=== PATIENT | male | born 1975 | race Hispanic/Latino ===

== ENCOUNTER 2018-08-27 20:32 | Inpatient (IN) | payer MEDICAID, OTHER ==
[2018-08-27 21:32] LABS: BASO # 0.03 K/mm3 (0.0-2.0); BASO % 0.2 % (0.0-3.0); EOS # 0.2 (0.0-0.7); EOS % 1.3 % (1.5-5.0); GRAN # 10.47 (1.4-6.5); GRAN % 71.1 % (50.0-68.0); HEMOGLOBIN 15.8 g/dL (14.0-18.0); LYMPH # 3.1 (1.2-3.4); LYMPH % 20.9 % (22.0-35.0); MEAN CELL VOLUME 86.7 fl (80.0-105.0); MEAN CORPUSCULAR HEMOGLOBIN 29.7 pg (25.0-35.0); MEAN CORPUSCULAR HGB CONC 34.3 g/dl (31.0-37.0); MONO % 6.5 % (1.0-6.0); RBC 5.32 10^6/uL (3.5-6.1); RED CELL DISTRIBUTION WIDTH 12.5 % (11.5-14.5); WHITE BLOOD COUNT 14.7 10^3/uL (4.5-11.0)
[2018-08-27 21:49] LABS: ALB/GLOB RATIO 1.3 (1.1-1.8); ALBUMIN 4.4 g/dL (3.0-4.8); ALT/SGPT 64 U/L (7-56); AST/SGOT 41 U/L (17-59); BLOOD UREA NITROGEN 19 mg/dL (7-21); CALCIUM 9.4 mg/dL (8.4-10.5); GFR NON-AFRICAN AMERICAN > 60
[2018-08-27 22:08] LABS: B-TYPE NATRIURETIC PEPTIDE 44.7 pg/mL (0-450); TROPONIN I < 0.01 ng/mL
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
[2018-08-27] MEDS ORDERED: Albuterol-Ipratrop 3 mg / 0.5 (3 ml) UD IH STA (22:24)
[2018-08-27] MEDS ORDERED: Sodium Chloride 0.9% 1,000 ML IV STA (22:25)
[2018-08-27] MEDS ORDERED: cefTRIAXone 1 gm 1 GM/100 ML BAG IVPB STA (22:33)
[2018-08-27] MEDS ORDERED: Azithromycin 500MG/NS 250ml 500 MG/250 ML BAG IVPB STA (22:34)
[2018-08-27 22:47] LABS: URINE BILIRUBIN NEGATIVE (NEGATIVE); URINE BLOOD NEGATIVE (NEGATIVE); URINE GLUCOSE (UA) NEGATIVE (NEGATIVE); URINE LEUKOCYTE ESTERASE NEGATIVE Leu/uL (NEGATIVE); URINE PROTEIN TRACE mg/dL (<30 mg/dL); URINE UROBILINOGEN 0.2 E.U./dL (<1 E.U./dL)
[2018-08-27 22:50] LABS: URINE APPEARANCE CLEAR (CLEAR); URINE COLOR YELLOW (YELLOW)
[2018-08-27 22:56] LABS: URINE RBC 0 - 2 /hpf (0-2); URINE WBC NEGATIVE /hpf (0-6)
[2018-08-27] MEDS ORDERED: Albuterol-Ipratrop 3 mg / 0.5 (3 ml) UD IH PRN (23:12)
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
[2018-08-27] MEDS: Sodium Chloride 0.9% 1,000 ML IV SCH (23:34)
[2018-08-28 01:05] VITALS: BMI 40.8
[2018-08-28 03:00] LABS: BARBITURATES, UR NEGATIVE (NEGATIVE); BENZODIAZEPINES, UR NEGATIVE (NEGATIVE); OPIATES, UR NEGATIVE (NEGATIVE); PHENCYCLIDINE, UR NEGATIVE (NEGATIVE)
[2018-08-28 04:42] LABS: HDL CHOLESTEROL 29 mg/dL (29-60)
[2018-08-28 04:52] LABS: LDL CHOLESTEROL 204 mg/dL (0-129)
[2018-08-28 04:54] LABS: TROPONIN I < 0.01 ng/mL
[2018-08-28 05:00] LABS: FREE T4 1.04 ng/dL (0.78-2.19)
[2018-08-28] MEDS: Sodium Chloride 0.9% 1,000 ML IV SCH ×3 (05:39→20:35)
[2018-08-28 07:35] LABS: BASO # 0.02 K/mm3 (0.0-2.0); BASO % 0.2 % (0.0-3.0); EOS % 0.3 % (1.5-5.0); GRAN # 9.86 (1.4-6.5); GRAN % 87.6 % (50.0-68.0); HEMOGLOBIN 14.6 g/dL (14.0-18.0); LYMPH # 1.2 (1.2-3.4); LYMPH % 10.7 % (22.0-35.0); MEAN CELL VOLUME 87.2 fl (80.0-105.0); MEAN CORPUSCULAR HEMOGLOBIN 29.7 pg (25.0-35.0); MEAN CORPUSCULAR HGB CONC 34.1 g/dl (31.0-37.0); MEAN PLATELET VOLUME 11.3 fl (7.0-11.0); MONO # 0.1 (0.1-0.6); MONO % 1.2 % (1.0-6.0); RBC 4.91 10^6/uL (3.5-6.1); RED CELL DISTRIBUTION WIDTH 12.4 % (11.5-14.5); WHITE BLOOD COUNT 11.2 10^3/uL (4.5-11.0)
[2018-08-28 08:04] LABS: ALB/GLOB RATIO 1.3 (1.1-1.8); ALBUMIN 4.2 g/dL (3.0-4.8); ALT/SGPT 56 U/L (7-56); AST/SGOT 35 U/L (17-59); BLOOD UREA NITROGEN 19 mg/dL (7-21); CALCIUM 9.4 mg/dL (8.4-10.5); GFR NON-AFRICAN AMERICAN > 60
[2018-08-28] MEDS: Insulin Lispro (humaLOG) LOW Coverage SC SCH ×3 (08:16→22:00)
--- NOTE | 2018-08-28 09:25 | RAD ---
Date of service: 08/27/2018 HISTORY: Chest pain COMPARISON: No prior. FINDINGS: LUNGS: No active pulmonary disease. PLEURA: No significant pleural effusion identified, no pneumothorax apparent. CARDIOVASCULAR: No aortic atherosclerotic calcification present. Normal cardiac size. No pulmonary vascular congestion. OSSEOUS STRUCTURES: No significant abnormalities. VISUALIZED UPPER ABDOMEN: Normal. OTHER FINDINGS: None. IMPRESSION: No active disease.
[2018-08-28] MEDS ORDERED: Azithromycin 250 MG in Sodium Chloride 0.9% 250 ML IVPB SCH (10:00)
[2018-08-28] MEDS ORDERED: cefTRIAXone 1 gm 1 GM/100 ML BAG IVPB SCH (10:00)
--- NOTE | 2018-08-28 10:34 | CARD ---
APPROVED REPORT Date of service: 08/27/2018 EKG Measurement Heart [id number] <Conclusion> Normal sinus rhythm Possible Left atrial enlargement Rightward axis ST_T Changes.
--- NOTE | 2018-08-28 10:35 | RAD ---
Date of service: 08/28/2018 HISTORY: r/o pneumonia COMPARISON: 08/27/2018 TECHNIQUE: Chest PA and lateral FINDINGS: LUNGS: No active pulmonary disease. PLEURA: No significant pleural effusion identified. No pneumothorax apparent. CARDIOVASCULAR: No aortic atherosclerotic calcification present. Normal cardiac size. No pulmonary vascular congestion. OSSEOUS STRUCTURES: No significant abnormalities. VISUALIZED UPPER ABDOMEN: Normal. OTHER FINDINGS: None. IMPRESSION: No active disease.
--- NOTE | 2018-08-28 15:42 | CARD ---
APPROVED REPORT Date of service: 08/28/2018 EXAM: Two-dimensional and M-mode echocardiogram with Doppler and color Doppler. INDICATION ANGINA/CARDIOMEGALY 2D DIMENSIONS Left Atrium (2D)4.2 (1.6-4.0cm)IVSd1.2 (0.7-1.1cm) LVDd5.7 (3.9-5.9cm)PWd1.4 (0.7-1.1cm) LVDs4.1 (2.5-4.0cm)FS (%) 28.5 % LVEF (%)54.2 (>50%) M-Mode DIMENSIONS Aortic Root2.70 (2.2-3.7cm)Aortic Cusp Exc.2.30 (1.5-2.0cm) Aortic Valve AoV Peak Yhvuqspn547.0cm/Kelsey Peak GR.5mmHg Mitral Valve MV E Mjttqtqk16.6cm/sMV A [place]91.4cm/sE/A ratio0.8 TDI E/Lateral E'0.0E/Medial E'0.0 Tricuspid Valve TR Peak [id number] [id number] Peak Gr.6mmHg [id number] LEFT VENTRICLE The left ventricle is normal size. There is borderline concentric left ventricular hypertrophy. The left ventricular function is normal. The left ventricular ejection fraction is within the normal range. There is normal LV segmental wall motion. Transmitral Doppler flow pattern is Grade I-abnormal relaxation pattern. RIGHT VENTRICLE The right ventricle is borderline dilated. There is normal right ventricular wall thickness. The right ventricular systolic function is normal. ATRIA The left atrium is borderline dilated. The right atrium size is normal. AORTIC VALVE The aortic valve is not well visualized. No aortic regurgitation is present. There is no aortic valvular stenosis. MITRAL VALVE The mitral valve is not well visualized. There is no mitral valve regurgitation noted. There is no mitral valve stenosis. TRICUSPID VALVE The tricuspid valve is normal in structure. There is no tricuspid valve regurgitation noted. GREAT VESSELS The aortic root is normal in size. The IVC is normal in size and collapses >50% with inspiration. PERICARDIAL EFFUSION There is no pericardial effusion. <Conclusion> There is borderline concentric left ventricular hypertrophy. The left ventricular function is normal. The left ventricular ejection fraction is within the normal range. There is normal LV segmental wall motion. Transmitral Doppler flow pattern is Grade I-abnormal relaxation pattern.
--- NOTE | 2018-08-28 15:44 | CP.PCM.PN ---
<Prem Yuen - Last Filed: 08/28/18 17:16> Subjective - Date & Time of Evaluation Date of Evaluation: 08/28/18 Time of Evaluation: 07:45 - Subjective Subjective: Medicine Progress Note for Hospitalist Service, Dr. Tomi Yuen, DO PGY-1 Pt seen and examined at bedside this am. States chest pain is improving, states he had difficulty sleeping last night 2/2 chest pain. Denies sob, fever, chills, n/v/d/c, abd pain, urinary complaints, or other symptoms. No acute events reported overnight by staff. Objective - Vital Signs/Intake and Output Vital Signs (last 24 hours): Temp Pulse Resp BP Pulse Ox 97.6 F 70 17 133/85 97 08/28/18 12:00 08/28/18 12:00 08/28/18 12:00 08/28/18 12:00 08/28/18 12:00 Intake and Output: 08/28/18 08/28/18 06:59 18:59 Intake Total 940 Balance 940 - Medications Medications: Current Medications Acetaminophen (Tylenol 325mg Tab) 650 mg PO Q6H PRN PRN Reason: Headache Last Admin: 08/28/18 06:34 Dose: 650 mg Albuterol/Ipratropium (Duoneb 3 Mg/0.5 Mg (3 Ml) Ud) 3 ml IH Q6H PRN PRN Reason: Wheezing Aspirin (Aspirin Chewable) 81 mg PO DAILY [facility] Last Admin: 08/28/18 09:44 Dose: 81 mg Atorvastatin Calcium (Lipitor) 40 mg PO HS [facility] Heparin Sodium (Porcine) (Heparin) 5,000 units SC Q12 [facility]; Protocol Last Admin: 08/28/18 09:44 Dose: 5,000 units Sodium Chloride (Sodium Chloride 0.9%) 1,000 mls @ 100 mls/hr IV .Q10H [facility] Last Admin: 08/28/18 09:45 Dose: Not Given Ibuprofen (Motrin Tab) 400 mg PO Q6H PRN PRN Reason: Headache Last Admin: 08/28/18 09:44 Dose: 400 mg Insulin Human Lispro (Humalog Low) 0 units SC ACHS [facility]; Protocol Last Admin: 08/28/18 08:16 Dose: Not Given - Labs Labs: 08/28/18 07:00 08/28/18 07:00 - Constitutional Appears: Non-toxic, No Acute Distress - Head Exam Head Exam: ATRAUMATIC, NORMOCEPHALIC - Eye Exam Eye Exam: EOMI, Normal appearance, PERRL - ENT Exam ENT Exam: Mucous Membranes Moist - Respiratory Exam Respiratory Exam: Clear to Ausculation Bilateral, NORMAL BREATHING PATTERN. absent: Rales, Rhonchi, Wheezes - Cardiovascular Exam Cardiovascular Exam: REGULAR RHYTHM, +S1, +S2. absent: Gallop, Rubs, Murmur - GI/Abdominal Exam GI & Abdominal Exam: Soft, Normal Bowel Sounds. absent: Distended, Guarding, Tenderness, Organomegaly - Extremities Exam Extremities Exam: Full ROM, Normal Capillary Refill, Normal Inspection. absent: Tenderness - Neurological Exam Neurological Exam: Alert, Awake, CN II-XII Intact, Oriented x3 - Skin Skin Exam: Dry, Intact, Normal Color, Warm Assessment and Plan - Assessment and Plan (Free Text) Assessment: 42M w/ no significant PMH presented to [facility] on 08/27 w/ c/o new onset L sided CP hours prior to admission. Admitted for ACS r/o. Plan: Chest Pain - ACS r/o EKG showed no significant ST segment elevations; Questionable T wave inversions appreciated CXR on admission: no active disease WBC trending down Trops neg x3 TSH 0.76, free T4 1.04 TGs 233, Chol 293, LDL 204, HDL 29 A1c 6.1 C/w Lipitor 40 mg PO hs Duonebs Q6H PRN ASA daily Echo demonstrated EF 54%, otherwise wnl Cardiology consulted (Dr. Justin), appreciate recs PPX: Heparin 5000 Q12 GI not indicated Pt seen, examined with, and plan discussed with Dr. Krishna, attending physician. Prem Yuen DO PGY-1, Bulb Grader Pager #[phone] <Wilber Krishna - Last Filed: 08/29/18 15:37> Objective - Vital Signs/Intake and Output Vital Signs (last 24 hours): Temp Pulse Resp BP Pulse Ox 97.6 F 58 L 20 143/97 H 97 08/29/18 11:55 08/29/18 14:00 08/29/18 11:55 08/29/18 11:55 08/29/18 06:00 Intake and Output: 08/29/18 08/29/18 06:59 18:59 Intake Total 300 Output Total 450 Balance -150 - Medications Medications: Current Medications Acetaminophen (Tylenol 325mg Tab) 650 mg PO Q6H PRN PRN Reason: Headache Last Admin: 08/29/18 09:56 Dose: 650 mg Albuterol/Ipratropium (Duoneb 3 Mg/0.5 Mg (3 Ml) Ud) 3 ml IH Q6H PRN PRN Reason: Wheezing Aspirin (Aspirin Chewable) 81 mg PO DAILY [facility] Last Admin: 08/29/18 09:56 Dose: 81 mg Atorvastatin Calcium (Lipitor) 40 mg PO HS [facility] Last Admin: 08/28/18 23:12 Dose: 40 mg Heparin Sodium (Porcine) (Heparin) 5,000 units SC Q12 [facility]; Protocol Last Admin: 08/29/18 09:56 Dose: 5,000 units Sodium Chloride (Sodium Chloride 0.9%) 1,000 mls @ 100 mls/hr IV .Q10H [facility] Last Admin: 08/29/18 05:24 Dose: 100 mls/hr Ibuprofen (Motrin Tab) 400 mg PO Q6H PRN PRN Reason: Headache Last Admin: 08/29/18 05:21 Dose: 400 mg Insulin Human Lispro (Humalog Low) 0 units SC ACHS [facility]; Protocol Last Admin: 08/29/18 12:39 Dose: Not Given Metoprolol Tartrate (Lopressor) 12.5 mg PO BRKDIN [facility] Nicotine (Nicoderm Cq) 1 patch TD DAILY [facility] - Labs Labs: 08/29/18 06:00 08/29/18 06:00 Attending/Attestation - Attestation I have personally seen and examined this patient.: Yes I have fully participated in the care of the patient.: Yes I have reviewed all pertinent clinical information, including history, physical exam and plan: Yes Notes (Text): 42 y/o obese M here with CP r/o ACS. EKG showed TWI in V1-V6 but trop negative x3. Pt has significant risk factors for CAD including smoking, hyperlipidemia, central obesity. will f/u cardio recommendations. c/w ASA, statin A1c of 6.1, c/w RISS pt counseled on diet and exercise
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
[2018-08-29] MEDS: Sodium Chloride 0.9% 1,000 ML IV SCH ×2 (05:24→16:59)
[2018-08-29 06:54] LABS: HEMOGLOBIN 13.6 g/dL (14.0-18.0); MEAN CELL VOLUME 86.9 fl (80.0-105.0); MEAN CORPUSCULAR HEMOGLOBIN 29.2 pg (25.0-35.0); MEAN CORPUSCULAR HGB CONC 33.7 g/dl (31.0-37.0); RBC 4.65 10^6/uL (3.5-6.1); RED CELL DISTRIBUTION WIDTH 12.4 % (11.5-14.5); WHITE BLOOD COUNT 11.1 10^3/uL (4.5-11.0)
[2018-08-29 07:23] LABS: ALB/GLOB RATIO 1.2 (1.1-1.8); ALBUMIN 3.7 g/dL (3.0-4.8); ALT/SGPT 46 U/L (7-56); AST/SGOT 25 U/L (17-59); BLOOD UREA NITROGEN 15 mg/dL (7-21); CALCIUM 8.7 mg/dL (8.4-10.5); GFR NON-AFRICAN AMERICAN > 60
[2018-08-29] MEDS: Insulin Lispro (humaLOG) LOW Coverage SC SCH ×4 (08:09→21:31)
--- NOTE | 2018-08-29 13:30 | CP.PCM.PN ---
<Prem Yuen - Last Filed: 08/29/18 14:56> Subjective - Date & Time of Evaluation Date of Evaluation: 08/29/18 Time of Evaluation: 07:20 - Subjective Subjective: Medicine Progress Note for Hospitalist Service, Dr. Tomi Yuen, DO PGY-1 Pt seen and examined at bedside. States chest pain is improving in severity. Otherwise denies any acute complaints currently. Denies headache, dizziness, fever, chills, shortness of breath, n/v/d/c, abd pain, urinary complaints, or other symptoms. No acute events reported overnight by staff. Objective - Vital Signs/Intake and Output Vital Signs (last 24 hours): Temp Pulse Resp BP Pulse Ox 97.6 F 61 20 143/97 H 97 08/29/18 11:55 08/29/18 11:55 08/29/18 11:55 08/29/18 11:55 08/29/18 06:00 Intake and Output: 08/29/18 08/29/18 06:59 18:59 Intake Total 300 Output Total 450 Balance -150 - Medications Medications: Current Medications Acetaminophen (Tylenol 325mg Tab) 650 mg PO Q6H PRN PRN Reason: Headache Last Admin: 08/29/18 09:56 Dose: 650 mg Albuterol/Ipratropium (Duoneb 3 Mg/0.5 Mg (3 Ml) Ud) 3 ml IH Q6H PRN PRN Reason: Wheezing Aspirin (Aspirin Chewable) 81 mg PO DAILY [facility] Last Admin: 08/29/18 09:56 Dose: 81 mg Atorvastatin Calcium (Lipitor) 40 mg PO HS [facility] Last Admin: 08/28/18 23:12 Dose: 40 mg Heparin Sodium (Porcine) (Heparin) 5,000 units SC Q12 [facility]; Protocol Last Admin: 08/29/18 09:56 Dose: 5,000 units Sodium Chloride (Sodium Chloride 0.9%) 1,000 mls @ 100 mls/hr IV .Q10H [facility] Last Admin: 08/29/18 05:24 Dose: 100 mls/hr Ibuprofen (Motrin Tab) 400 mg PO Q6H PRN PRN Reason: Headache Last Admin: 08/29/18 05:21 Dose: 400 mg Insulin Human Lispro (Humalog Low) 0 units SC ACHS [facility]; Protocol Last Admin: 08/29/18 12:39 Dose: Not Given Metoprolol Tartrate (Lopressor) 12.5 mg PO BRKDIN [facility] - Labs Labs: 08/29/18 06:00 08/29/18 06:00 - Constitutional Appears: Non-toxic, No Acute Distress - Head Exam Head Exam: ATRAUMATIC, NORMOCEPHALIC - Eye Exam Eye Exam: EOMI, Normal appearance, PERRL - ENT Exam ENT Exam: Mucous Membranes Moist - Respiratory Exam Respiratory Exam: Clear to Ausculation Bilateral, NORMAL BREATHING PATTERN. absent: Rales, Rhonchi, Wheezes - Cardiovascular Exam Cardiovascular Exam: REGULAR RHYTHM, +S1, +S2. absent: Gallop, Rubs, Murmur - GI/Abdominal Exam GI & Abdominal Exam: Soft, Normal Bowel Sounds. absent: Distended, Guarding, Tenderness, Organomegaly - Extremities Exam Extremities Exam: Full ROM, Normal Capillary Refill, Normal Inspection. absent: Calf Tenderness, Pedal Edema - Neurological Exam Neurological Exam: Alert, Awake, CN II-XII Intact, Normal Gait, Oriented x3 - Skin Skin Exam: Dry, Intact, Normal Color, Warm Assessment and Plan - Assessment and Plan (Free Text) Assessment: 42M w/ no significant PMH presented to [facility] on 08/27 w/ c/o new onset L sided CP hours prior to admission. Admitted for ACS r/o. Plan: Chest Pain - ACS r/o EKG on admission showed no significant ST segment elevations; Questionable T wave inversions appreciated Repeat EKG this am NSR, no acute St-t wave changes appreciated CXR on admission: no active disease WBC trending down Trops neg x3 TSH 0.76, free T4 1.04 A1c 6.1 Duonebs Q6H PRN ASA daily Echo demonstrated EF 54%, otherwise wnl Cardiology consulted (Dr. Justin), appreciate recs To be NPO after midnight tomorrow for cardiac cath as per Dr. Justin HLD TGs 233, Chol 293, LDL 204, HDL 29 C/w Lipitor 40 mg PO hs Hx tobacco abuse Nicotine patch offered Smoking cessation counseling provided PPX: Heparin 5000 Q12 GI not indicated Pt seen, examined with, and plan discussed with Dr. Krishna, attending physician. Prem Yuen DO PGY-1, Cardiology Tech Pager #[phone] <Wilber Krishna - Last Filed: 08/29/18 15:39> Objective - Vital Signs/Intake and Output Vital Signs (last 24 hours): Temp Pulse Resp BP Pulse Ox 97.6 F 58 L 20 143/97 H 97 08/29/18 11:55 08/29/18 14:00 08/29/18 11:55 08/29/18 11:55 08/29/18 06:00 Intake and Output: 08/29/18 08/29/18 06:59 18:59 Intake Total 300 Output Total 450 Balance -150 - Medications Medications: Current Medications Acetaminophen (Tylenol 325mg Tab) 650 mg PO Q6H PRN PRN Reason: Headache Last Admin: 08/29/18 09:56 Dose: 650 mg Albuterol/Ipratropium (Duoneb 3 Mg/0.5 Mg (3 Ml) Ud) 3 ml IH Q6H PRN PRN Reason: Wheezing Aspirin (Aspirin Chewable) 81 mg PO DAILY [facility] Last Admin: 08/29/18 09:56 Dose: 81 mg Atorvastatin Calcium (Lipitor) 40 mg PO HS [facility] Last Admin: 08/28/18 23:12 Dose: 40 mg Heparin Sodium (Porcine) (Heparin) 5,000 units SC Q12 [facility]; Protocol Last Admin: 08/29/18 09:56 Dose: 5,000 units Sodium Chloride (Sodium Chloride 0.9%) 1,000 mls @ 100 mls/hr IV .Q10H [facility] Last Admin: 08/29/18 05:24 Dose: 100 mls/hr Ibuprofen (Motrin Tab) 400 mg PO Q6H PRN PRN Reason: Headache Last Admin: 08/29/18 05:21 Dose: 400 mg Insulin Human Lispro (Humalog Low) 0 units SC ACHS [facility]; Protocol Last Admin: 08/29/18 12:39 Dose: Not Given Metoprolol Tartrate (Lopressor) 12.5 mg PO BRKDIN [facility] Nicotine (Nicoderm Cq) 1 patch TD DAILY [facility] - Labs Labs: 08/29/18 06:00 08/29/18 06:00 Attending/Attestation - Attestation I have personally seen and examined this patient.: Yes I have fully participated in the care of the patient.: Yes I have reviewed all pertinent clinical information, including history, physical exam and plan: Yes Notes (Text): 08/29/18 15:38 42 y/o obese M here with CP r/o ACS. EKG showed TWI in V1-V6 but trop negative x3. Pt has significant risk factors for CAD including smoking, hyperlipidemia, central obesity. pt to go for cath tomorrow c/w ASA, statin A1c of 6.1, c/w RISS pt counseled on diet and exercise
--- NOTE | 2018-08-29 13:45 | PN ---
DATE: 08/29/2018 SUBJECTIVE: The patient denies any chest pain. PHYSICAL EXAMINATION: VITAL SIGNS: Blood pressure 128/83, heart rate 69, temperature 97.5, and respirations 20. HEENT: Normocephalic. CHEST: Clear. HEART: S1 and S2 regular. EXTREMITIES: No edema. LABORATORY DATA: Hemoglobin and hematocrit 13.6 and 40.4, white count 11.1, and platelet count 241,000. SMA-7 is within normal limits except for chloride of 109. EKG today revealed sinus rhythm anterior ischemic T-wave inversion. Echocardiographic study revealed borderline concentric LVH with normal ejection fraction and normal segmental wall motion, grade I abnormal relaxation pattern. ASSESSMENT: 1. Chest pain, myocardial infarction, ruled out. 2. Ischemic anterior T-wave changes. 3. Hyperlipidemia. RECOMMENDATIONS: Continue current aspirin, subcutaneous heparin, Lipitor. Start Lopressor at 12.5 mg twice a day. Cardiac catheterization was recommended. The procedure and risks were explained to the patient, who understood and agreed for the procedure. Procedure schedule for 10 a.m. tomorrow. Daquan Justin MD
--- NOTE | 2018-08-29 20:43 | CARD ---
APPROVED REPORT Date of service: 08/29/2018 EKG Measurement Heart [id number] <Conclusion> Normal sinus rhythm Nonspecific T wave abnormality Abnormal ECG
[2018-08-30] MEDS: Sodium Chloride 0.9% 1,000 ML IV SCH ×4 (01:30→22:00)
[2018-08-30 06:28] LABS: HEMOGLOBIN 13.1 g/dL (14.0-18.0); MEAN CELL VOLUME 86.3 fl (80.0-105.0); MEAN CORPUSCULAR HGB CONC 33.6 g/dl (31.0-37.0); MEAN PLATELET VOLUME 10.8 fl (7.0-11.0); RBC 4.52 10^6/uL (3.5-6.1); RED CELL DISTRIBUTION WIDTH 12.4 % (11.5-14.5); WHITE BLOOD COUNT 7.7 10^3/uL (4.5-11.0)
[2018-08-30 06:59] LABS: ALB/GLOB RATIO 1.3 (1.1-1.8); ALBUMIN 3.6 g/dL (3.0-4.8); ALT/SGPT 47 U/L (7-56); AST/SGOT 28 U/L (17-59); BLOOD UREA NITROGEN 18 mg/dL (7-21); CALCIUM 8.6 mg/dL (8.4-10.5); GFR NON-AFRICAN AMERICAN > 60
[2018-08-30] MEDS: Insulin Lispro (humaLOG) LOW Coverage SC SCH ×4 (07:41→21:40)
[2018-08-30] MEDS ORDERED: Lidocaine 2% Inj (20ml) ONE (09:06)
[2018-08-30] MEDS ORDERED: Iodixanol 320 MG/ML 100 ML BOTTLE IV ONE (09:06)
[2018-08-30] MEDS ORDERED: Iohexol 350mgl/ml 50 ML ONE (09:06)
[2018-08-30] MEDS ORDERED: Iodixanol 320 MG/ML 200 ML BOTTLE IV ONE (09:06)
--- NOTE | 2018-08-30 09:11 | CP.PCM.PN ---
<Prem Yuen - Last Filed: 08/30/18 16:16> Subjective - Date & Time of Evaluation Date of Evaluation: 08/30/18 Time of Evaluation: 07:45 - Subjective Subjective: Medicine Progress Note for Hospitalist Service, Dr. Tomi Yuen, DO PGY-1 Pt seen and examined at bedside. Denies any acute complaints, resting comfortably at bedside. States chest pain has resolved. No acute events reported overnight by staff. Denies HERNANDEZ, dizziness, sob, n/v/d/c, abd pain, urinary complaints, or other symptoms. Pt NPO for cardiac cath today. Objective - Vital Signs/Intake and Output Vital Signs (last 24 hours): Temp Pulse Resp BP Pulse Ox 98.1 F 63 20 117/66 99 08/30/18 06:00 08/30/18 08:40 08/30/18 06:00 08/30/18 06:00 08/30/18 06:00 Intake and Output: 08/30/18 08/30/18 06:59 18:59 Intake Total 1440 Output Total 350 Balance 1090 - Medications Medications: Current Medications Acetaminophen (Tylenol 325mg Tab) 650 mg PO Q6H PRN PRN Reason: Headache Last Admin: 08/29/18 09:56 Dose: 650 mg Albuterol/Ipratropium (Duoneb 3 Mg/0.5 Mg (3 Ml) Ud) 3 ml IH Q6H PRN PRN Reason: Wheezing Aspirin (Aspirin Chewable) 81 mg PO DAILY [facility] Last Admin: 08/29/18 09:56 Dose: 81 mg Atorvastatin Calcium (Lipitor) 40 mg PO HS [facility] Last Admin: 08/29/18 22:09 Dose: 40 mg Heparin Sodium (Porcine) (Heparin) 5,000 units SC Q12 [facility]; Protocol Last Admin: 08/29/18 22:08 Dose: 5,000 units Sodium Chloride (Sodium Chloride 0.9%) 1,000 mls @ 100 mls/hr IV .Q10H [facility] Last Admin: 08/30/18 03:00 Dose: 100 mls/hr Ibuprofen (Motrin Tab) 400 mg PO Q6H PRN PRN Reason: Headache Last Admin: 08/29/18 22:08 Dose: 400 mg Insulin Human Lispro (Humalog Low) 0 units SC ACHS [facility]; Protocol Last Admin: 08/30/18 07:41 Dose: Not Given Metoprolol Tartrate (Lopressor) 12.5 mg PO BRKDIN [facility] Last Admin: 08/30/18 08:40 Dose: Not Given Nicotine (Nicoderm Cq) 1 patch TD DAILY [facility] Last Admin: 08/29/18 16:55 Dose: Not Given - Labs Labs: 08/30/18 06:00 08/30/18 06:00 - Constitutional Appears: Non-toxic, No Acute Distress - Head Exam Head Exam: ATRAUMATIC, NORMOCEPHALIC - Eye Exam Eye Exam: EOMI, Normal appearance, PERRL - ENT Exam ENT Exam: Mucous Membranes Moist - Respiratory Exam Respiratory Exam: Clear to Ausculation Bilateral, NORMAL BREATHING PATTERN. absent: Rales, Rhonchi, Wheezes - Cardiovascular Exam Cardiovascular Exam: REGULAR RHYTHM, +S1, +S2. absent: Gallop, Rubs, Murmur - GI/Abdominal Exam GI & Abdominal Exam: Soft, Normal Bowel Sounds. absent: Distended, Guarding, Tenderness, Organomegaly - Extremities Exam Extremities Exam: Full ROM, Normal Capillary Refill, Normal Inspection. absent: Calf Tenderness, Pedal Edema - Neurological Exam Neurological Exam: Alert, Awake, CN II-XII Intact, Oriented x3 - Psychiatric Exam Psychiatric exam: Normal Affect, Normal Mood - Skin Skin Exam: Dry, Intact, Normal Color, Warm Assessment and Plan - Assessment and Plan (Free Text) Assessment: 42M w/ no significant PMH presented to [facility] on 08/27 w/ c/o new onset L sided CP hours prior to admission. Admitted for ACS r/o. Plan: Chest Pain - ACS r/o EKG on admission showed no significant ST segment elevations; Questionable T wave inversions appreciated Repeat EKG on 08/29 NSR, no acute St-t wave changes appreciated CXR on admission: no active disease Trops neg x3 TSH 0.76, free T4 1.04 A1c 6.1 Duonebs Q6H PRN ASA daily Echo demonstrated EF 54%, otherwise wnl Cardiology consulted (Dr. Justin), appreciate recs Cardiac cath 08/30: Unremarkable coronary circulation. 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 CT angio of chest ordered for further eval of aneurysmal dilatation as per Dr. Justin HLD TGs 233, Chol 293, LDL 204, HDL 29 C/w Lipitor 40 mg PO hs Hx tobacco abuse Nicotine patch offered Smoking cessation counseling provided PPX: Heparin 5000 Q12 GI not indicated Pt seen, examined with, and plan discussed with Dr. Krishna, attending physician. Prem Yuen DO PGY-1, Card Mounter Pager #[phone] <Wilber Krishna - Last Filed: 09/02/18 00:30> Objective - Vital Signs/Intake and Output Vital Signs (last 24 hours): Temp Pulse Resp BP Pulse Ox 98.2 F 61 20 129/88 99 08/31/18 12:00 08/31/18 12:00 08/31/18 12:00 08/31/18 12:00 08/31/18 05:33 - Labs Labs: 08/31/18 06:00 08/31/18 06:00 PT 11.0 SECONDS (9.4-12.5) 08/30/18 08:47 INR 0.96 08/30/18 08:47 APTT 28.7 Seconds (25.1-36.5) 08/30/18 08:47 Attending/Attestation - Attestation I have personally seen and examined this patient.: Yes I have fully participated in the care of the patient.: Yes I have reviewed all pertinent clinical information, including history, physical exam and plan: Yes Notes (Text): Chest pain r/o ACS: Pt is s/p cath with no significant stenosis. however noted some aortic root dilation. Will get CT Angio chest for randi garcia c/w lipitor
[2018-08-30 09:18] LABS: INR 0.96; PARTIAL THROMBOPLASTIN TIME 28.7 Seconds (25.1-36.5)
[2018-08-30] MEDS ORDERED: Midazolam 2 MG/2 ML VIAL ONE (10:18)
--- NOTE | 2018-08-30 15:38 | CARDCATH ---
PROCEDURE DATE: 08/30/2018 The patient is a 42-year-old male who presents because of typical retrosternal chest pain. An EKG was suggestive of anterior ischemic T-wave inversion. Cardiac catheterization was recommended. The procedure and its risks was explained to the patient who understood and agreed for the procedure. PROCEDURE: After local infiltration with 1% Lidocaine, a 6-Wallisian sheath was placed in the right femoral artery. Left and right coronary angiography were performed with 6-Wallisian JL4 and JR4 diagnostic catheters. Left ventriculogram and aortogram were performed with a 6-Wallisian pigtail catheter. The patient tolerated the procedure well without any complication. ANGIOGRAPHIC FINDINGS: Selective injection of the left coronary artery revealed left main to be a normal vessel. Left main trifurcated into medium-sized LAD, medium-sized circumflex artery, and medium-sized ramus. The entire LAD circulation was angiographically unremarkable. Selective injection of the right coronary artery revealed a medium-sized dominant vessel that was angiographically unremarkable. Left ventriculogram performed in the BALDWIN projection revealed normal wall motion and ejection fraction estimated at 55%. Aortography performed in the SURINAMESE projection had revealed an aneurysmal dilatation of the aortic root just above the sinus of Valsalva. The rest of the ascending aorta was mildly dilated. There was no evidence of false lumen. ASSESSMENT: 1. Unremarkable coronary circulation. 2. 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 In view of that, the patient will undergo CT angiogram of the chest for further evaluation of aneurysmal dilatation. Daquan Justin MD
[2018-08-31 05:34] VITALS: O2SAT 99
[2018-08-31 06:42] LABS: HEMOGLOBIN 13.9 g/dL (14.0-18.0); MEAN CORPUSCULAR HGB CONC 34.2 g/dl (31.0-37.0); MEAN PLATELET VOLUME 10.7 fl (7.0-11.0); RBC 4.79 10^6/uL (3.5-6.1); RED CELL DISTRIBUTION WIDTH 12.3 % (11.5-14.5); WHITE BLOOD COUNT 9.1 10^3/uL (4.5-11.0)
[2018-08-31 07:02] LABS: ALB/GLOB RATIO 1.4 (1.1-1.8); ALBUMIN 3.8 g/dL (3.0-4.8); ALT/SGPT 67 U/L (7-56); AST/SGOT 45 U/L (17-59); BLOOD UREA NITROGEN 14 mg/dL (7-21); CALCIUM 8.9 mg/dL (8.4-10.5); GFR NON-AFRICAN AMERICAN > 60
[2018-08-31] MEDS: Insulin Lispro (humaLOG) LOW Coverage SC SCH (08:09)
[2018-08-31] MEDS: Sodium Chloride 0.9% 1,000 ML IV SCH (08:10)
--- NOTE | 2018-08-31 09:07 | CT ---
PROCEDURE: CT Angiography Chest, Abdomen and Pelvis with and without intravenous contrast HISTORY: aneurysm of Aortic root COMPARISON: None. TECHNIQUE: Contiguous axial images of the chest, abdomen and pelvis were obtained in the phase of aortic enhancement. A noncontrast enhanced CT of the chest was also obtained to evaluate for possible intramural thrombus. Coronal and sagittal reformats were generated. IV dose administered: 148 cc of Omni 350 Radiation dose: Total exam DLP = 1971.36 mGy-cm. This CT exam was performed using one or more of the following dose reduction techniques: Automated exposure control, adjustment of the mA and/or kV according to patient size, and/or use of iterative reconstruction technique. FINDINGS: CT ANGIOGRAPHY OF THE CHEST WITH & WITHOUT CONTRAST: AORTA (CHEST AND ABDOMEN): The thoracic and abdominal aorta are unremarkable, without aneurysm, dissection or rupture. No intramural thrombus identified in the thoracic aorta on the non-contrast ct of the chest. There is no evidence of pulmonary embolus The celiac axis, superior mesenteric artery, inferior mesenteric artery and the renal arteries are widely patent. The pelvic arteries are unremarkable. LUNGS: Clear. No nodule, mass or consolidation. MEDIASTINUM: Unremarkable. Normal caliber aorta and pulmonary arterial trunk. No aortic dissection. Normal size heart. LYMPH NODES: Unremarkable. PLEURA: Unremarkable. No pneumothorax. No pleural fluid. BONES: Unremarkable. OTHER FINDINGS: None. CT ANGIOGRAPHY OF THE ABDOMEN AND PELVIS WITH CONTRAST: LIVER: Unremarkable. No gross lesion or ductal dilatation. Fatty infiltration of the liver GALLBLADDER AND BILE DUCTS: Gallbladder removed PANCREAS: Unremarkable. No gross lesion or ductal dilatation. SPLEEN: Unremarkable. ADRENALS: Unremarkable. No mass. KIDNEYS AND URETERS: Unremarkable. No hydronephrosis. No solid mass. VASCULATURE: Unremarkable. No aortic aneurysm. Minimal aortic and iliac calcifications STOMACH AND BOWEL: Unremarkable. No obstruction. No gross mural thickening. APPENDIX: Normal appendix. PERITONEUM: Unremarkable. No free fluid. No free air. LYMPH NODES: Unremarkable. No enlarged lymph nodes. BLADDER: Unremarkable. REPRODUCTIVE: Unremarkable. BONES: No acute fracture. OTHER FINDINGS: The report concurs with the preliminary [facility] report IMPRESSION: No evidence of aortic dissection or pulmonary embolus. Ascending aorta measures 3.5 cm
--- NOTE | 2018-08-31 11:40 | PN ---
DATE: 08/31/2018 SUBJECTIVE: The patient denies any chest pain. No report of groin bleeding. PHYSICAL EXAMINATION VITAL SIGNS: Blood pressure 132/80, heart rate 65, temperature 97.9, respirations 18. HEENT: Normocephalic. CHEST: Clear. HEART: S1, S2 regular. EXTREMITIES: No edema. No hematoma. LABORATORY DATA: Chest, abdomen, and pelvis CT angio, no evidence of aortic dissection or pulmonary embolism. Extending aorta measures 3.5 cm. ASSESSMENT: 1. Small aneurysm sinus of Valsalva. 2. Hyperlipidemia. RECOMMENDATIONS: The case was discussed with Dr. Díaz and with the medical team. The patient will follow up with Dr. Díaz as an outpatient for further recommendations for the sinus of Valsalva aneurysm. Daquan Justin MD
[2018-08-31 13:52] VITALS: BP 129/88; PULSE 61; RESP 20; TEMP 98.2
--- NOTE | 2018-08-31 15:59 | CP.PCM.DIS ---
<Prem Yuen - Last Filed: 08/31/18 15:51> Provider - Provider Date of Admission: 08/27/18 23:08 Attending physician: Tanya Cortes MD Consults: 08/28/18 07:00 Cardiology Consult Routine Comment: Consulting Provider: Daquan Justin Consulting Physician: Daquan Justin Reason for Consult: angina 08/30/18 21:02 Physician Consult Routine Comment: Consulting Provider: Tomás Rodriges Consulting Physician: Tomás Rodriges Reason for Consult: sinus of valsalva aneurysm Time Spent in preparation of Discharge (in minutes): 45 Diagnosis - Discharge Diagnosis (1) HLD (hyperlipidemia) Status: Acute (2) Tobacco abuse Status: Chronic (3) Chest pain Status: Resolved Hospital Course - Lab Results Lab Results: Micro Results 08/27/18 23:00 Blood Blood Culture - Preliminary NO GROWTH AFTER 3 DAYS 08/27/18 22:30 Blood Blood Culture - Preliminary NO GROWTH AFTER 3 DAYS Most Recent Lab Values WBC 9.1 10^3/uL (4.5-11.0) 08/31/18 06:00 RBC 4.79 10^6/uL (3.5-6.1) 08/31/18 06:00 Hgb 13.9 g/dL (14.0-18.0) L 08/31/18 06:00 Hct 40.7 % (42.0-52.0) L 08/31/18 06:00 MCV 85.0 fl (80.0-105.0) 08/31/18 06:00 MCH 29.0 pg (25.0-35.0) 08/31/18 06:00 MCHC 34.2 g/dl (31.0-37.0) 08/31/18 06:00 RDW 12.3 % (11.5-14.5) 08/31/18 06:00 Plt Count 240 10^3/uL (120.0-450.0) 08/31/18 06:00 MPV 10.7 fl (7.0-11.0) 08/31/18 06:00 Gran % 87.6 % (50.0-68.0) H 08/28/18 07:00 Lymph % (Auto) 10.7 % (22.0-35.0) L 08/28/18 07:00 [place] % (Auto) 1.2 % (1.0-6.0) 08/28/18 07:00 Eos % (Auto) 0.3 % (1.5-5.0) L 08/28/18 07:00 Baso % (Auto) 0.2 % (0.0-3.0) 08/28/18 07:00 Gran # 9.86 (1.4-6.5) H 08/28/18 07:00 Lymph # (Auto) 1.2 (1.2-3.4) 08/28/18 07:00 [place] # (Auto) 0.1 (0.1-0.6) 08/28/18 07:00 Eos # (Auto) 0.0 (0.0-0.7) 08/28/18 07:00 Baso # (Auto) 0.02 K/mm3 (0.0-2.0) 08/28/18 07:00 PT 11.0 SECONDS (9.4-12.5) 08/30/18 08:47 INR 0.96 08/30/18 08:47 APTT 28.7 Seconds (25.1-36.5) 08/30/18 08:47 D-Dimer, Quantitative 210 ng/mlDDU (0-243) 08/29/18 06:00 Sodium 138 mmol/L (132-148) 08/31/18 06:00 Potassium 3.8 mmol/L (3.6-5.0) 08/31/18 06:00 Chloride 106 mmol/L (98-107) 08/31/18 06:00 Carbon Dioxide 23 mmol/L (21-33) 08/31/18 06:00 Anion Gap 13 (10-20) 08/31/18 06:00 BUN 14 mg/dL (7-21) 08/31/18 06:00 Creatinine 0.9 mg/dl (0.8-1.5) 08/31/18 06:00 Est GFR ( Amer) > 60 08/31/18 06:00 Est GFR (Non-Af Amer) > 60 08/31/18 06:00 POC Glucose (mg/dL) 96 mg/dL (65-110) 08/31/18 11:40 Random Glucose 88 mg/dL (70-110) 08/31/18 06:00 Hemoglobin A1c 6.1 % (4.2-6.5) 08/28/18 03:58 Calcium 8.9 mg/dL (8.4-10.5) 08/31/18 06:00 Magnesium 2.1 mg/dL (1.7-2.2) 08/27/18 21:28 Total Bilirubin 0.9 mg/dL (0.2-1.3) 08/31/18 06:00 AST 45 U/L (17-59) 08/31/18 06:00 ALT 67 U/L (7-56) H 08/31/18 06:00 Alkaline Phosphatase 60 U/L (38-126) 08/31/18 06:00 Lactate Dehydrogenase 671 U/L (333-699) 08/27/18 21:28 Total Creatine Kinase 66 U/L (35-230) 08/27/18 21:28 Troponin I < 0.01 ng/mL 08/28/18 09:30 NT-Pro-B Natriuret Pep 44.7 pg/mL (0-450) 08/27/18 21:28 Total Protein 6.6 g/dL (5.8-8.3) 08/31/18 06:00 Albumin 3.8 g/dL (3.0-4.8) 08/31/18 06:00 Globulin 2.8 gm/dL 08/31/18 06:00 Albumin/Globulin Ratio 1.4 (1.1-1.8) 08/31/18 06:00 Triglycerides 233 mg/dL (35-160) H 08/28/18 03:58 Cholesterol 293 mg/dL (130-200) H 08/28/18 03:58 LDL Cholesterol Direct 204 mg/dL (0-129) H 08/28/18 03:58 HDL Cholesterol 29 mg/dL (29-60) 08/28/18 03:58 Procalcitonin < 0.05 NG/ML (0.19-0.49) L 08/27/18 21:28 Free T4 1.04 ng/dL (0.78-2.19) 08/28/18 03:58 TSH 3rd Generation 0.76 mIU/mL (0.46-4.68) 08/28/18 03:58 Urine Color Yellow (YELLOW) 08/27/18 22:35 Urine Appearance Clear (CLEAR) 08/27/18 22:35 Urine pH 6.0 (4.7-8.0) 08/27/18 22:35 Ur Specific [place] >= 1.030 (1.005-1.035) 08/27/18 22:35 Urine Protein Trace mg/dL (<30 mg/dL) H 08/27/18 22:35 Urine Glucose (UA) Negative mg/dL (NEGATIVE) 08/27/18 22:35 Urine Ketones Negative mg/dL (NEGATIVE) 08/27/18 22:35 Urine Blood Negative (NEGATIVE) 08/27/18 22:35 Urine Nitrate Negative (NEGATIVE) 08/27/18 22:35 Urine Bilirubin Negative (NEGATIVE) 08/27/18 22:35 Urine Urobilinogen 0.2 E.U./dL (<1 E.U./dL) 08/27/18 22:35 Ur Leukocyte Esterase Negative Nathalie/uL (NEGATIVE) 08/27/18 22:35 Urine RBC 0 - 2 /hpf (0-2) 08/27/18 22:35 Urine WBC Negative /hpf (0-6) 08/27/18 22:35 Ur Epithelial Cells None /hpf (0-5) 08/27/18 22:35 Urine Opiates Screen Negative (NEGATIVE) 08/28/18 01:40 Urine Methadone Screen Negative (NEGATIVE) 08/28/18 01:40 Ur Barbiturates Screen Negative (NEGATIVE) 08/28/18 01:40 Ur Phencyclidine Scrn Negative (NEGATIVE) 08/28/18 01:40 Ur Amphetamines Screen Negative (NEGATIVE) 08/28/18 01:40 U Benzodiazepines Scrn Negative (NEGATIVE) 08/28/18 01:40 U Oth Cocaine Metabols Negative (NEGATIVE) 08/28/18 01:40 U Cannabinoids Screen Negative (NEGATIVE) 08/28/18 01:40 - Hospital Course Hospital Course: HPI at time of admission: "42M w/ no significant PMH presented to [facility] [place] ED on 08/27 w/ c/o new onset L sided CP hours prior to admission. Patient reported chest pain occurred while patient was at rest, began along left sternal border w/ radiations into his L arm, shoulder, and back of neck. Episode of chest pain lasted approximately 15 minutes and had soon remitted in terms of intensity. Patient reports pain to be a heavy pressure like sensation, which he reported improved w/ nitro given in ED. During episode patient reports cold sweats and diaphoresis as well as shortness of breath and a coughing fit. After coughing fit patient reported new onset of reproducible chest pain. Denied any nausea during episode but did report a "gas". Patient also reported some headache, dizziness, and blurry vision during episode. Upon presentation, patient was feeling much more comfortable. Upon ROS he denies any abd pain, n/v/d/c, urinary discomfort, numbness/tingling, focal weakness. Remainder 12 system ROS is negative." Hospital Course: Pertinent imaging: EKG on admission showed no significant ST segment elevations; Questionable T wave inversions appreciated Repeat EKG on 08/29 NSR, no acute St-t wave changes appreciated CXR on admission: no active disease Echo demonstrated EF 54%, otherwise wnl Cardiac cath 08/30: Unremarkable coronary circulation. 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 CT Chest Angio: no evidence of PE or aneurysm. Pt was admitted for chest pain, ACS r/o. Dr. Justin was consulted, who recommended Cardiac cath procedure and echo for further eval. Chest pain improved, cardiac cath demonstrated no blockages. CT surgery (Dr. Rodriges) was consulted and CT angio ordered due to Dr. Justin visualizing a saccular aneurysm during cardiac cath. Dr. Rodriges recommended outpatient follow-up, no acute interventions needed at this time. Pt was also found to have elevated cholesterol and was started on statin therapy. Pt was also counseled on smoking cessation to lessen cardiac risk factors. Pt was d/c to home in stable condition on 08/31/18. Instructed to establish care with PMD that accepts his insurance, and f/u with Cardio and CT surgery outpatient after discharge. Pt was discharged on new prescriptions including ASA and Lipitor. For further details of hospital admission, please refer to hospital EMR. Discharge Exam - Head Exam Head Exam: ATRAUMATIC, NORMOCEPHALIC - Eye Exam Eye Exam: EOMI, Normal appearance, PERRL - ENT Exam ENT Exam: Mucous Membranes Moist - Respiratory Exam Respiratory Exam: Clear to PA & Lateral, NORMAL BREATHING PATTERN, UNREMARKABLE. absent: Rales, Rhonchi, Wheezes - Cardiovascular Exam Cardiovascular Exam: REGULAR RHYTHM, +S1, +S2. absent: Gallop, Rubs, Systolic Murmur - GI/Abdominal Exam GI & Abdominal Exam: Normal Bowel Sounds, Soft, Unremarkable. absent: Distended, Tenderness - Extremities Exam Extremities exam: full ROM, normal capillary refill, normal inspection, pedal pulses present - Neurological Exam Neurological exam: Alert, CN II-XII Intact, Normal Gait, Oriented x3, Reflexes Normal - Psychiatric Exam Psychiatric exam: Normal Affect, Normal Mood - Skin Skin Exam: Dry, Intact, Normal Color, Warm Discharge Plan - Discharge Medications Prescriptions: Aspirin [Aspirin Chewable] 81 mg PO DAILY #30 chew Atorvastatin [Lipitor] 40 mg PO HS #30 tab - Follow Up Plan Condition: FAIR Disposition: HOME/ ROUTINE Instructions: Coronary Angioplasty, Coronary Stenting (DC), Chest Pain (DC), Chest Pain (GEN) Additional Instructions: Please follow up with your primary care doctor within 3-5 days of discharge. If you do not have one, please call your insurance company to set up an appointment with a doctor who is covered by your insurance. Please follow up with the senior wind turbine technician, Dr. Justin, within 1 week of discharge. You will be discharged home with the following medications: 1. Aspirin 81mg Daily (Cardiac risk reduction) 2. Lipitor 40mg Daily (Cholesterol) Please follow up with Dr. Rodriges (Cardio thoracic surgeon) for possible saccular aneurysm. Recommend diet and weight loss as well as tobacco cessation to reduce cardiac risk factors. If your symptoms return, please go to the nearest emergency department. Referrals: Daquan Justin MD [Staff Provider] - Tomás Rodriges MD [Staff Provider] - <Tanya Cortes - Last Filed: 09/01/18 14:33> Provider - Provider Date of Admission: 08/27/18 23:08 Attending physician: Tanya Cortes MD Consults: 08/28/18 07:00 Cardiology Consult Routine Comment: Consulting Provider: Daquan Justin Consulting Physician: Daquan Justin Reason for Consult: angina 08/30/18 21:02 Physician Consult Routine Comment: Consulting Provider: Tomás Rodriges Consulting Physician: Rodriges,Tomás J Reason for Consult: sinus of valsalva aneurysm Hospital Course - Lab Results Lab Results: Micro Results 08/27/18 23:00 Blood Blood Culture - Preliminary NO GROWTH AFTER 4 DAYS 08/27/18 22:30 Blood Blood Culture - Preliminary NO GROWTH AFTER 4 DAYS Most Recent Lab Values WBC 9.1 10^3/uL (4.5-11.0) 08/31/18 06:00 RBC 4.79 10^6/uL (3.5-6.1) 08/31/18 06:00 Hgb 13.9 g/dL (14.0-18.0) L 08/31/18 06:00 Hct 40.7 % (42.0-52.0) L 08/31/18 06:00 MCV 85.0 fl (80.0-105.0) 08/31/18 06:00 MCH 29.0 pg (25.0-35.0) 08/31/18 06:00 MCHC 34.2 g/dl (31.0-37.0) 08/31/18 06:00 RDW 12.3 % (11.5-14.5) 08/31/18 06:00 Plt Count 240 10^3/uL (120.0-450.0) 08/31/18 06:00 MPV 10.7 fl (7.0-11.0) 08/31/18 06:00 Gran % 87.6 % (50.0-68.0) H 08/28/18 07:00 Lymph % (Auto) 10.7 % (22.0-35.0) L 08/28/18 07:00 [place] % (Auto) 1.2 % (1.0-6.0) 08/28/18 07:00 Eos % (Auto) 0.3 % (1.5-5.0) L 08/28/18 07:00 Baso % (Auto) 0.2 % (0.0-3.0) 08/28/18 07:00 Gran # 9.86 (1.4-6.5) H 08/28/18 07:00 Lymph # (Auto) 1.2 (1.2-3.4) 08/28/18 07:00 [place] # (Auto) 0.1 (0.1-0.6) 08/28/18 07:00 Eos # (Auto) 0.0 (0.0-0.7) 08/28/18 07:00 Baso # (Auto) 0.02 K/mm3 (0.0-2.0) 08/28/18 07:00 PT 11.0 SECONDS (9.4-12.5) 08/30/18 08:47 INR 0.96 08/30/18 08:47 APTT 28.7 Seconds (25.1-36.5) 08/30/18 08:47 D-Dimer, Quantitative 210 ng/mlDDU (0-243) 08/29/18 06:00 Sodium 138 mmol/L (132-148) 08/31/18 06:00 Potassium 3.8 mmol/L (3.6-5.0) 08/31/18 06:00 Chloride 106 mmol/L (98-107) 08/31/18 06:00 Carbon Dioxide 23 mmol/L (21-33) 08/31/18 06:00 Anion Gap 13 (10-20) 08/31/18 06:00 BUN 14 mg/dL (7-21) 08/31/18 06:00 Creatinine 0.9 mg/dl (0.8-1.5) 08/31/18 06:00 Est GFR ( Amer) > 60 08/31/18 06:00 Est GFR (Non-Af Amer) > 60 08/31/18 06:00 POC Glucose (mg/dL) 96 mg/dL (65-110) 08/31/18 11:40 Random Glucose 88 mg/dL (70-110) 08/31/18 06:00 Hemoglobin A1c 6.1 % (4.2-6.5) 08/28/18 03:58 Calcium 8.9 mg/dL (8.4-10.5) 08/31/18 06:00 Magnesium 2.1 mg/dL (1.7-2.2) 08/27/18 21:28 Total Bilirubin 0.9 mg/dL (0.2-1.3) 08/31/18 06:00 AST 45 U/L (17-59) 08/31/18 06:00 ALT 67 U/L (7-56) H 08/31/18 06:00 Alkaline Phosphatase 60 U/L (38-126) 08/31/18 06:00 Lactate Dehydrogenase 671 U/L (333-699) 08/27/18 21:28 Total Creatine Kinase 66 U/L (35-230) 08/27/18 21:28 Troponin I < 0.01 ng/mL 08/28/18 09:30 NT-Pro-B Natriuret Pep 44.7 pg/mL (0-450) 08/27/18 21:28 Total Protein 6.6 g/dL (5.8-8.3) 08/31/18 06:00 Albumin 3.8 g/dL (3.0-4.8) 08/31/18 06:00 Globulin 2.8 gm/dL 08/31/18 06:00 Albumin/Globulin Ratio 1.4 (1.1-1.8) 08/31/18 06:00 Triglycerides 233 mg/dL (35-160) H 08/28/18 03:58 Cholesterol 293 mg/dL (130-200) H 08/28/18 03:58 LDL Cholesterol Direct 204 mg/dL (0-129) H 08/28/18 03:58 HDL Cholesterol 29 mg/dL (29-60) 08/28/18 03:58 Procalcitonin < 0.05 NG/ML (0.19-0.49) L 08/27/18 21:28 Free T4 1.04 ng/dL (0.78-2.19) 08/28/18 03:58 TSH 3rd Generation 0.76 mIU/mL (0.46-4.68) 08/28/18 03:58 Urine Color Yellow (YELLOW) 08/27/18 22:35 Urine Appearance Clear (CLEAR) 08/27/18 22:35 Urine pH 6.0 (4.7-8.0) 08/27/18 22:35 Ur Specific [place] >= 1.030 (1.005-1.035) 08/27/18 22:35 Urine Protein Trace mg/dL (<30 mg/dL) H 08/27/18 22:35 Urine Glucose (UA) Negative mg/dL (NEGATIVE) 08/27/18 22:35 Urine Ketones Negative mg/dL (NEGATIVE) 08/27/18 22:35 Urine Blood Negative (NEGATIVE) 08/27/18 22:35 Urine Nitrate Negative (NEGATIVE) 08/27/18 22:35 Urine Bilirubin Negative (NEGATIVE) 08/27/18 22:35 Urine Urobilinogen 0.2 E.U./dL (<1 E.U./dL) 08/27/18 22:35 Ur Leukocyte Esterase Negative Nathalie/uL (NEGATIVE) 08/27/18 22:35 Urine RBC 0 - 2 /hpf (0-2) 08/27/18 22:35 Urine WBC Negative /hpf (0-6) 08/27/18 22:35 Ur Epithelial Cells None /hpf (0-5) 08/27/18 22:35 Urine Opiates Screen Negative (NEGATIVE) 08/28/18 01:40 Urine Methadone Screen Negative (NEGATIVE) 08/28/18 01:40 Ur Barbiturates Screen Negative (NEGATIVE) 08/28/18 01:40 Ur Phencyclidine Scrn Negative (NEGATIVE) 08/28/18 01:40 Ur Amphetamines Screen Negative (NEGATIVE) 08/28/18 01:40 U Benzodiazepines Scrn Negative (NEGATIVE) 08/28/18 01:40 U Oth Cocaine Metabols Negative (NEGATIVE) 08/28/18 01:40 U Cannabinoids Screen Negative (NEGATIVE) 08/28/18 01:40 Attending/Attestation - Attestation I have personally seen and examined this patient.: Yes I have fully participated in the care of the patient.: Yes I have reviewed all pertinent clinical information, including history, physical exam and plan: Yes Notes (Text): 09/01/18 14:31 Attending note; Patient seen and examined with resident. Patient is alert and awake. Status post cardiac cath. Site is clean. No hematoma noted. Patient is a 42 year old obese Male is admitted for chest pain . EKG showed TWI in V1-V6 but trop negative x3. Pt has significant risk factors for CAD including smoking, hyperlipidemia, cent ral obesity. Status post cardiac cath. Cath showed no blockage. CT surgery (Dr. Rodriges) was consulted and CT angio ordered due to Dr. Justin visualizing a saccular aneurysm during cardiac cath. Dr. Rodriges recommended outpatient follow-up, no acute interventions needed at this time. Patient was also found to have elevated cholesterol and was started on statin therapy. Patient was also counseled on smoking cessation to lessen cardiac risk factors. Patient will be discharged home. 09/01/18 14:33
== END 2018-08-31 14:53 | disposition home or self-care (01) | DRG 125 ==
LOC: ED 20:32 → ERH 23:08 → 2RSO 08-28 00:24
PROVIDERS: ADMIT Internal Medicine; ATTEND Internal Medicine
PROC: 4A023N7 Measurement of Cardiac Sampling and Pressure, Left Heart, Percutaneous Approach (ICD-10-PCS; principal; 2018-08-30)
PROC: B211YZZ Fluoroscopy of Multiple Coronary Arteries using Other Contrast (ICD-10-PCS; 2018-08-30)
PROC: B215YZZ Fluoroscopy of Left Heart using Other Contrast (ICD-10-PCS; 2018-08-30)
PROC: B310YZZ Fluoroscopy of Thoracic Aorta using Other Contrast (ICD-10-PCS; 2018-08-30)
DX: R07.2 Precordial pain (principal); I51.7 Cardiomegaly; R51 Headache; R42 Dizziness and giddiness; I77.810 Thoracic aortic ectasia; H53.8 Other visual disturbances; F17.210 Nicotine dependence, cigarettes, uncomplicated; E66.9 Obesity, unspecified; Z68.41 Body mass index [BMI] 40.0-44.9, adult; E78.5 Hyperlipidemia, unspecified